=== PATIENT | male | born 1970 | race Caucasian/White ===

== ENCOUNTER 2021-11-08 18:35 | Emergency (ER) | payer OTHER ==
[2021-11-08 18:53] LABS: RED BLOOD COUNT 4.27 M/UL (4.20-5.50); WHITE BLOOD COUNT 9.8 K/UL (4.5-11.0)
[2021-11-08 19:15] LABS: BUN/CREATININE RATIO 12 (0-10)
== END 2021-11-08 21:35 | disposition short-term general hospital (02) ==
LOC: ER1 18:35
PROVIDERS: Student in an Organized Health Care Education/Training Program
DX: S02.841A Fracture of lateral orbital wall, right side, initial encounter for closed fracture (principal); S22.41XA Multiple fractures of ribs, right side, initial encounter for closed fracture; S02.40EA Zygomatic fracture, right side, initial encounter for closed fracture; S02.31XA Fracture of orbital floor, right side, initial encounter for closed fracture; S02.40CA Maxillary fracture, right side, initial encounter for closed fracture; J93.9 Pneumothorax, unspecified; F17.200 Nicotine dependence, unspecified, uncomplicated; V47.5XXA Car driver injured in collision with fixed or stationary object in traffic accident, initial encounter; Y92.410 Unspecified street and highway as the place of occurrence of the external cause
CPT/HCPCS: 70450; 70486; 71045; 71260; 72125; 72170; 80053; 80307; 81001; 83605; 85025; 85610; 85730; 86850; 86900; 86901; 96374; 96375; 96376; 99285; G0480; J2270; J2405; Q9967